=== PATIENT | female | born 1990 | race American Indian/Alaskan Native ===

== ENCOUNTER 2018-06-04 12:25 | Emergency (ER) | payer BC, MEDICAID ==
[2018-06-04 12:25] VITALS: BMI 37.1
[2018-06-04 12:44] VITALS: BP 123/82; PULSE 85; RESP 18; TEMP 98.6; O2SAT 98
[2018-06-04] MEDS ORDERED: Naproxen 550 mg Tab PO STA (13:16)
[2018-06-04] MEDS ORDERED: Hydrocortisone 2.5% Rectal Cream(30 gm) PR STA (13:17)
[2018-06-04] MEDS ORDERED: Naproxen 550 mg Tab PO ONE (13:25)
--- NOTE | 2018-06-04 13:28 | C.PDOC ---
History Of Present Illness 27 y/o female presents to the ED complaining of rectal pain since yesterday. Patient reports history of hemorrhoids since delivering baby 4 years ago, with intermittent flare ups. She has been using Preparation H and was taking warm baths yesterday without any relief. Patient was seen by PMD today, who sent her to the ED. Time Seen by Provider: 06/04/18 12:46 Chief Complaint (Nursing): GI Problem History Per: Patient History/Exam Limitations: no limitations Onset/Duration Of Symptoms: Days (x2) Current Symptoms Are (Timing): Still Present Past Medical History Reviewed: Historical Data, Nursing Documentation, Vital Signs Vital Signs: Last Vital Signs Temp 98.6 F 06/04/18 12:41 Pulse 85 06/04/18 12:41 Resp 18 06/04/18 12:41 BP 123/82 06/04/18 12:41 Pulse Ox 98 06/04/18 12:41 Surgical History: Appendectomy, - [facility] RESECTION OF APPENDIX, PERCUTANEOUS ENDOSCOPIC APPROACH (07/04/15) Family History: States: No Known Family Hx - Social History Hx Tobacco Use: No Hx Alcohol Use: No Hx Substance Use: No - Immunization History Hx Tetanus Toxoid Vaccination: No Hx Influenza Vaccination: No Hx Pneumococcal Vaccination: No Review Of Systems Constitutional: Negative for: Fever Gastrointestinal: Positive for: Rectal Pain, Other (Hemorrhoids). Negative for: Vomiting, Abdominal Pain, Diarrhea Physical Exam - Physical Exam Appears: Non-toxic, In Acute Distress (appears in mild discomfort) Skin: Normal Color, Warm Head: Atraumatic, Normacephalic Eye(s): bilateral: Normal Inspection Neck: Supple Chest: Symmetrical Cardiovascular: Rhythm Regular, No Murmur Respiratory: Normal Breath Sounds, No Accessory Muscle Use Gastrointestinal/Abdominal: Soft, No Tenderness, No Distention, No Guarding Rectal: Hemorrhoids (hemorrhoid at the 3 oclock position, approximately 1.5 cm in length, TTP, swollen, no thrombosis and no bleeding) Extremity: Bilateral: Atraumatic, Normal ROM Neurological/Psych: Oriented x3, Normal Speech ED Course And Treatment O2 Sat by Pulse Oximetry: 98 (RA) Pulse Ox Interpretation: Normal Progress Note: Patient treated with Anusol, Colace, and Naproxen in the ED. Will discharge patient home with prescriptions for the same. Advised patient to continue baths, and follow up with surgery. Disposition Counseled Patient/Family Regarding: Studies Performed, Diagnosis, Need For Followup, Rx Given - Disposition Referrals: Ramya Agee MD [Staff Provider] - Addison oDrado MD [Staff Provider] - Disposition: HOME/ ROUTINE Disposition Time: 13:30 Condition: STABLE Additional Instructions: FOLLOW UP WITH GENERAL SURGEON IN 1-2 DAYS USE MEDICATIONS DIRECTED AND CONTINUE SITZ BATHS RETURN TO ER IF SYMPTOMS WORSEN Prescriptions: Docusate [Colace] 100 mg PO DAILY #30 cap Hydrocortisone 2.5% (Rectal) [Anusol-HC] 1 applic DE TID #1 tube Instructions: Hemorrhoids (DC), How to Do a Sitz Bath Forms: [facility] (Citizen Of [place]), Work Excuse Print Language: MONGOLIAN - Clinical Impression Clinical Impression: Hemorrhoids - Scribe Statement The provider has reviewed the documentation as recorded by the Scribe (Anna Cheng) Provider Attestation: All medical record entries made by the Scribe were at my direction and personally dictated by me. I have reviewed the chart and agree that the record accurately reflects my personal performance of the history, physical exam, medical decision making, and the department course for this patient. I have also personally directed, reviewed, and agree with the discharge instructions and disposition.
== END 2018-06-04 13:35 | disposition home or self-care (01) ==
LOC: C.ER 12:25
DX: K64.9 Unspecified hemorrhoids (principal)